=== PATIENT | female | born 1990 | race Caucasian/White ===

== ENCOUNTER 2017-10-06 18:00 | Emergency (ER) | payer BC ==
[2017-10-06 18:18] VITALS: BP 118/65
[2017-10-06] MEDS ORDERED: Lidocaine 1% with EPINEPHrine 1:100,000 20 ML MDV INJECT ONE (18:20)
[2017-10-06] MEDS ORDERED: Bacitracin/Neomycin/Polymyxin B Oint 0.9 GM U/D Packet TOP ONE (18:20)
--- NOTE | 2017-10-06 18:40 | EDM.PDOC ---
ED HPI GENERAL MEDICAL PROBLEM - General Chief Complaint: Laceration Stated Complaint: FELL AND CUT KNEE Time Seen by Provider: 10/06/17 18:15 Source of Information: Reports: Patient History Limitations: Reports: No Limitations - History of Present Illness INITIAL COMMENTS - FREE TEXT/NARRATIVE: Patient presents with complaints of right knee discomfort and a laceration. States was taking supper out to the smoker when tripped and fell in to the gravel/rocks. States landed directly on her knees. Did feel discomfort to right hip and knee, more sore now. Wound continued to bleed and was gaping so felt she may need sutures. Is current on her tetanus. Onset: Today, Sudden Duration: Hour(s): Location: Reports: Lower Extremity, Right Quality: Reports: Throbbing Severity: Mild Improves with: Reports: Rest Worsens with: Reports: Movement Associated Symptoms: Reports: Other (hip and knee pain) Right Knee Pain Score (Numeric/FACES): 4 - Related Data Allergies Allergy/AdvReac Type Severity Reaction Status Date / Time naproxen Allergy Rash Verified 10/06/17 18:19 Penicillins Allergy Rash Verified 10/06/17 18:19 Sulfa (Sulfonamide Allergy Rash Verified 10/06/17 18:19 Antibiotics) Home Meds: Home Meds Ondansetron HCl [Ondansetron] 8 mg PO Q6H PRN 06/02/17 [History] Pedi Mv No.79/Ferrous Fumarate [Flintstones with Iron Tab Chew] 18 mg PO DAILY 06/02/17 [History] 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: - Past Surgical History HEENT Surgical History: Reports: Oral Surgery Social & Family History - Tobacco Use Smoking Status *Q: Never Smoker - Caffeine Use Caffeine Use: Reports: Coffee - Recreational Drug Use Recreational Drug Use: No - Living Situation & Occupation Living situation: Reports: Occupation: Other ED ROS GENERAL - Review of Systems Review Of Systems: See Below Musculoskeletal: Reports: Leg Pain, Joint Pain Skin: Reports: Wound ED EXAM, SKIN/RASH Exam: See Below Exam Limited By: No Limitations General Appearance: Alert, WD/WN, No Apparent Distress Extremities: Normal Inspection, Normal Range of Motion. No: Leg Pain Neurological: Alert, Oriented Psychiatric: Normal Affect, Normal Mood Skin: Wound/Incision Location, Skin: Lower Extremity, Right Characteristics: Linear ED SKIN PROCEDURES - Laceration/Wound Repair Right Knee Lac/Wound length In cm: 1.5 Appearance: Superficial, Linear, Mildly Contaminated Distal NVT: Neuro & Vascular Intact Anesthetic Type: Local Local Anesthesia - Lidocaine (Xylocaine): 1% with EPI Local Anesthetic Volume: 4cc Skin Prep: Other (saf-clens ) Exploration/Debridement/Repair: Wound Explored, Explored to Base Closed with: Sutures # of Sutures: 3 Suture Type: Nylon, Interrupted, Simple Sterile Dressing Applied: Provider Tetanus Status Addressed: Yes Course - Vital Signs Last Recorded V/S: Last Vital Signs Temp 97.7 F 10/06/17 18:15 Pulse 103 H 10/06/17 18:15 Resp 20 10/06/17 18:15 BP 118/65 10/06/17 18:15 Pulse Ox 98 10/06/17 18:15 - Orders/Labs/Meds Meds: Medications Discontinued Medications Generic Name Dose Route Start Last Admin Trade Name Jean Claudeq PRN Reason Stop Dose Admin Lidocaine/Epinephrine 20 ml 10/06/17 18:20 Xylocaine 1% With Epinephrine 1:100,000 INJECT 10/06/17 18:21 ONETIME ONE Neomycin/Polymyxin/Bacitracin 1 each 10/06/17 18:20 Triple Antibiotic Oint TOP 10/06/17 18:21 ONETIME ONE Departure - Departure Time of Disposition: 18:39 Disposition: Home, Self-Care 01 Condition: Good Clinical Impression: Broken skin, Laceration - Discharge Information Instructions: Laceration Care, Adult, [id number] Forms: ED Department Discharge Additional Instructions: 1. Keep wound clean and dry 2. Triple antibiotic ointment daily for 3 days, then may switch to vaseline 3. Keep wound covered when exposed to the elements 4. Sutures out in 10 days 5. Contact us with any concerns.
== END 2017-10-06 18:48 | disposition home or self-care (01) ==
LOC: CC.ED 18:00
DX: S81.011A Laceration without foreign body, right knee, initial encounter (principal); Z88.5 Allergy status to narcotic agent; Z88.0 Allergy status to penicillin; Z88.2 Allergy status to sulfonamides; Z79.899 Other long term (current) drug therapy; W18.09XA Striking against other object with subsequent fall, initial encounter
CPT/HCPCS: 12001; 99283

== ENCOUNTER 2019-08-07 19:41 | Emergency (ER) | payer BC ==
[2019-08-07 19:44] VITALS: BP 136/65; PULSE 119
--- NOTE | 2019-08-07 20:00 | EDM.PDOC ---
ED HPI GENERAL MEDICAL PROBLEM - General Chief Complaint: Fever Stated Complaint: fever Time Seen by Provider: 08/07/19 19:45 Source of Information: Reports: Patient History Limitations: Reports: No Limitations - History of Present Illness INITIAL COMMENTS - FREE TEXT/NARRATIVE: Had kids into clinic earlier this week and they had viral URI. Pat had temp of 105 at home today and then took 2 doses of Tylenol and was finally able to break her temp down to below 100.5. She has been drinking. She has been coughing harsh cough of white phlegm and feels discomfort in lower right quadrant when movement and palpation. She just found out she is with baby #4 and is about 6 weeks. No vomiting with it. Denies any burning with urination. Onset: Today Location: Reports: Generalized Associated Symptoms: Reports: Fever/Chills Headache Pain Score (Numeric/FACES): 4 - Related Data Allergies Allergy/AdvReac Type Severity Reaction Status Date / Time naproxen Allergy Rash Verified 08/07/19 19:48 Penicillins Allergy Rash Verified 08/07/19 19:48 Sulfa (Sulfonamide Allergy Rash Verified 08/07/19 19:48 Antibiotics) Home Meds: Home Meds ondansetron HCL [Ondansetron] 8 mg PO Q6H PRN 06/02/17 [History] Pnv No.95/Ferrous Fum/Folic AC [ Caplet] 1 tab PO DAILY 08/07/19 [ History] Venlafaxine HCl [Venlafaxine ER] 75 mg PO DAILY 08/07/19 [History] 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: - Past Surgical History HEENT Surgical History: Reports: Oral Surgery Social & Family History - Tobacco Use Smoking Status *Q: Never Smoker Second Hand Smoke Exposure: No - Caffeine Use Caffeine Use: Reports: Coffee - Recreational Drug Use Recreational Drug Use: No - Living Situation & Occupation Living situation: Reports: Occupation: Other ED ROS GENERAL - Review of Systems Review Of Systems: See Below Constitutional: Reports: Fever, Chills, Weakness Respiratory: Reports: Cough, Sputum Cardiovascular: Reports: No Symptoms GI/Abdominal: Reports: Abdominal Pain Musculoskeletal: Reports: Other (muscle aches) Skin: Reports: No Symptoms ED EXAM, GENERAL - Physical Exam Exam: See Below Exam Limited By: No Limitations General Appearance: Alert, WD/WN, No Apparent Distress Ears: Normal External Exam, Normal Canal, Normal TMs Throat/Mouth: Normal Inspection, Normal Oropharynx, No Airway Compromise Head: Atraumatic, Normocephalic Neck: Normal Inspection, Supple, Non-Tender, Full Range of Motion Respiratory/Chest: No Respiratory Distress, Lungs Clear, Normal Breath Sounds Cardiovascular: Regular Rate, Rhythm, No Edema GI/Abdominal: Normal Bowel Sounds, Soft, Non-Tender Back Exam: Normal Inspection, Full Range of Motion Extremities: Normal Inspection, Normal Range of Motion, Non-Tender, Normal Capillary Refill Neurological: Alert, Oriented Skin Exam: Warm, Dry, Intact Course - Vital Signs Last Recorded V/S: Last Vital Signs Temp 99 F 08/07/19 19:42 Pulse 119 H 08/07/19 19:42 Resp 16 08/07/19 19:42 BP 136/65 08/07/19 19:42 Pulse Ox 99 08/07/19 19:42 - Orders/Labs/Meds Labs: Laboratory Tests 08/07/19 08/07/19 Range/Units 19:48 19:48 WBC 5.6 (5.0-10.0) 10^3/uL RBC 4.60 (4.00-5.50) 10^6/uL Hgb 13.1 (12.0-16.0) g/dL Hct 39.0 (37.0-47.0) % MCV 84.8 (82.0-94.0) fL MCH 28.5 (27.0-32.0) pg MCHC 33.6 (33.0-38.0) g/dL RDW Coeff of Queta 13.9 (11.0-15.0) % Plt Count 265 (150-400) 10^3/uL Neut % (Auto) 78.1 (35-85) % Lymph % (Auto) 8.8 L (10-55) % [place] % (Auto) 12.9 (0-16) % Eos % (Auto) 0 (0-5) % Baso % (Auto) 0.2 (0-3) % Neut # (Auto) 4.37 (1.80-7.00) 10^3/uL Lymph # (Auto) 0.49 L (1.00-4.80) 10^3/uL [place] # (Auto) 0.72 (0.00-0.80) 10^3/uL Eos # (Auto) 0.00 (0.00-0.45) 10^3/uL Baso # (Auto) 0.01 10^3/uL Urine Color Yellow (YELLOW) Urine Appearance Clear (CLEAR) Urine pH 5.5 (4.5-8.0) Ur Specific [place] 1.010 (1.003-1.020) Urine Protein Negative (NEGATIVE) mg/dL Urine Glucose (UA) Negative (NEGATIVE) mg/dL Urine Ketones 80 H (NEGATIVE) mg/dL Urine Occult Blood Small H (NEGATIVE) Urine Nitrite Negative (NEGATIVE) Urine Bilirubin Negative (NEGATIVE) Urine Urobilinogen 0.2 (0.2-1.0) EU/dL Ur Leukocyte Esterase Small H (NEGATIVE) Urine RBC Not seen (0-5) /HPF Urine WBC 0-5 (0-5) /HPF Ur Squamous Epith Cells Many H (NOT SEEN) /HPF Urine Bacteria Few H (NOT SEEN) /HPF Meds: Medications Discontinued Medications Generic Name Dose Route Start Last Admin Trade Name Freq PRN Reason Stop Dose Admin Oseltamivir Phosphate 75 mg 08/07/19 20:17 Tamiflu PO 08/07/19 20:18 ONETIME ONE - Re-Assessments/Exams Free Text/Narrative Re-Assessment/Exam: 08/07/19 20:20 Discussed positive influenza A and will start on Tamiflu at this time. Departure - Departure Time of Disposition: 20:21 Disposition: Home, Self-Care 01 Condition: Good Clinical Impression: Influenza - Discharge Information *PRESCRIPTION DRUG MONITORING PROGRAM REVIEWED*: Not Applicable *COPY OF PRESCRIPTION DRUG MONITORING REPORT IN PATIENT LUCRECIA: Not Applicable Instructions: Influenza, Adult, [id number] Forms: ED Department Discharge Additional Instructions: Push fluids as much as possible Tylenol as needed for discomfort Rest Tamiflu twice a day for 5 days Recheck if new concerns noted. Sepsis Event Note - Evaluation Sepsis Screening Result: Possible Sepsis Risk - Focused Exam Vital Signs: Vital Signs Temp Pulse Resp BP Pulse Ox 08/07/19 19:42 99 F 119 H 16 136/65 99 Date Exam was Performed: 08/07/19 Time Exam was Performed: 20:19 - Problem List & Annotations (1) Influenza SNOMED Code(s): 4924324 Code(s): J11.1 - FLU DUE TO UNIDENTIFIED INFLUENZA VIRUS W OTH RESP MANIFEST Status: Acute Current Visit: Yes - Problem List Review Problem List Initiated/Reviewed/Updated: Yes
[2019-08-07] MEDS: Oseltamivir 75 MG Cap PO ONE (20:20)
== END 2019-08-07 20:25 | disposition home or self-care (01) ==
LOC: CC.ED 19:41
DX: J11.1 Influenza due to unidentified influenza virus with other respiratory manifestations (principal); Z88.8 Allergy status to other drugs, medicaments and biological substances; Z88.0 Allergy status to penicillin; Z88.2 Allergy status to sulfonamides; Z79.899 Other long term (current) drug therapy
CPT/HCPCS: 36415; 81001; 85025; 87804; 99283; A9270-GY

== ENCOUNTER 2022-08-31 10:35 | Emergency (ER) | payer BC ==
[2022-08-31] MEDS: Acetaminophen/HYDROcodone 325-5 MG Tab PO ONE (10:42)
[2022-08-31 11:31] VITALS: BP 126/79; PULSE 88
== END 2022-08-31 11:35 | disposition home or self-care (01) ==
LOC: CC.ED 10:35
DX: S52.124A Nondisplaced fracture of head of right radius, initial encounter for closed fracture (principal); Z88.6 Allergy status to analgesic agent; Z88.0 Allergy status to penicillin; Z88.2 Allergy status to sulfonamides; W55.22XA Struck by cow, initial encounter
CPT/HCPCS: 29125; 73090-RT; 73110-RT; 99283; A9270-GY

== ENCOUNTER 2023-11-06 03:52 | Emergency (ER) | payer BC ==
[2023-11-06] MEDS: Sodium Chloride 0.9% 1,000 ML IV ONE (04:05)
[2023-11-06] MEDS: Ondansetron 4 MG/2 ML SDV IVPUSH STA (04:05)
[2023-11-06] MEDS: Metoclopramide 10 MG/2 ML SDV IVPUSH ONE (04:37)
[2023-11-06] MEDS: diphenhydrAMINE 50 MG/ML SDV IVPUSH ONE (04:38)
[2023-11-06] MEDS: Ketorolac 30 MG/ML SDV IVPUSH ONE (04:41)
[2023-11-06] MEDS: Sodium Chloride 0.9% 1,000 ML IV SCH (05:14)
[2023-11-06 06:43] VITALS: BP 131/82; PULSE 92
== END 2023-11-06 06:20 | disposition home or self-care (01) ==
LOC: CC.ED 03:52
DX: G43.909 Migraine, unspecified, not intractable, without status migrainosus (principal); Z88.0 Allergy status to penicillin; Z88.2 Allergy status to sulfonamides; Z88.8 Allergy status to other drugs, medicaments and biological substances; Z79.899 Other long term (current) drug therapy
CPT/HCPCS: 96361; 96374; 96375; 99282; 99283; J1200; J1885; J2405; J2765; J7030